=== PATIENT | male | born 1975 | race Caucasian/White ===

== ENCOUNTER 2020-08-28 14:13 | Emergency (ER) | payer OTHER ==
[~2020-08-28] VITALS: Ht 170.2 cm; Wt 74.8 kg
[2020-08-28] MEDS ORDERED: ZIPRASIDONE MESYLATE 20 MG/VIAL VIAL IM ONE ×2 (14:30→14:36)
[2020-08-28] MEDS ORDERED: TDAP [DIPH/PERTUSSIS/TET] 0.5 ML VIAL IM ONE ×2 (14:30→14:36)
--- NOTE | 2020-08-28 14:30 | NUR ---
mauro, in-custody, bit his right index finger, medical clearance. On room air, breathing evenly and unlabored. connected to the monitor and pulse ox. kept comfortable, will continue to monitor accordingly.
[2020-08-28] MEDS ORDERED: AMOX/CLAVULANATE 875 MG TABLET ONE (14:36)
[2020-08-28] MEDS ORDERED: AMOX/CLAVULANATE 875 MG TABLET PO ONE (15:00)
[2020-08-28] MEDS ORDERED: NEOMY SULF/BACITRAC ZN/POLY 15 GM TUBE TP SCH (15:30)
[2020-08-28] MEDS ORDERED: AMOX-430 PO (16:08)
[2020-08-28 16:19] VITALS: BP 130/81
--- NOTE | 2020-08-28 16:19 | NUR ---
patient left accompanied by [employer] in no distress.
== END 2020-08-28 16:19 ==
LOC: ER 14:19
DX: S61.511A Laceration without foreign body of right wrist, initial encounter (principal); S61.206A Unspecified open wound of right little finger without damage to nail, initial encounter; F29 Unspecified psychosis not due to a substance or known physiological condition; W50.3XXA Accidental bite by another person, initial encounter; Y93.89 Activity, other specified; Y92.89 Other specified places as the place of occurrence of the external cause; Y99.8 Other external cause status
CPT/HCPCS: 73140; 90471; 90715; 96372; 99284; A6403; J3486